=== PATIENT | male | born 1940 | race Caucasian/White ===

== ENCOUNTER 2020-09-21 13:42 | Emergency (ER) | payer OTHER ==
[~2020-09-21] VITALS: Ht 170.2 cm; Wt 68.0 kg
[2020-09-21] MEDS ORDERED: BACITRACIN ZINC OINT UDPKT TOP ONE (15:30)
[2020-09-21] MEDS ORDERED: ACETAMINOPHEN 325MG TABLET PO ONE (15:30)
[2020-09-21] MEDS ORDERED: LIDOCAINE HCL/PF 1% 10 MG/ML 5ML VIAL IJ ONE (15:30)
[2020-09-21] MEDS ORDERED: CEPH500C2 MT (17:47)
[2020-09-21] MEDS ORDERED: IBUP-2029 PO (17:47)
[2020-09-21 18:02] VITALS: BP 139/99
== END 2020-09-21 18:03 | disposition home or self-care (01) ==
LOC: ER 13:42
DX: S61.210A Laceration without foreign body of right index finger without damage to nail, initial encounter (principal); S61.218A Laceration without foreign body of other finger without damage to nail, initial encounter; S61.214A Laceration without foreign body of right ring finger without damage to nail, initial encounter; E11.9 Type 2 diabetes mellitus without complications; I10 Essential (primary) hypertension; Z88.2 Allergy status to sulfonamides; X58.XXXA Exposure to other specified factors, initial encounter; Y93.89 Activity, other specified; Y92.89 Other specified places as the place of occurrence of the external cause; Y99.8 Other external cause status
CPT/HCPCS: 12002; 73130; 99284; J3490